=== PATIENT | male | born 2000 | race Caucasian/White ===

== ENCOUNTER 2020-11-28 16:26 | Emergency (ER) | payer BC ==
[~2020-11-28] VITALS: Ht 195.6 cm; Wt 68.2 kg
[2020-11-28 16:43] VITALS: TEMP 98.1
[2020-11-28 18:59] VITALS: BP 106/69; PULSE 82
== END 2020-11-28 18:59 | disposition home or self-care (01) ==
LOC: COL.ER 16:26
DX: K52.9 Noninfective gastroenteritis and colitis, unspecified (principal); D72.829 Elevated white blood cell count, unspecified
CPT/HCPCS: J1885; Q9967

== ENCOUNTER 2021-11-25 21:04 | Emergency (ER) | payer BC ==
[~2021-11-25] VITALS: Ht 193 cm; Wt 77.3 kg
[2021-11-25] MEDS ORDERED: PREDNISONE20 MG PO (22:47)
[2021-11-25 22:53] VITALS: BP 107/66; PULSE 73; TEMP 97.4
== END 2021-11-25 22:53 | disposition home or self-care (01) ==
LOC: COL.ER 21:04
DX: L50.0 Allergic urticaria (principal); E86.0 Dehydration; Z28.310 Unvaccinated for COVID-19
CPT/HCPCS: J1200; J2930; J7030